=== PATIENT | female | born 1950 | race Caucasian/White ===

== ENCOUNTER → 2019-08-23 | Outpatient (CLI) | payer MEDICARE ==
--- NOTE | 2019-08-27 00:45 | HOLTMON ---
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 Baseline rhythm was sinus. Rate vaired from 45 to 138 beats per minute, with an average of 77 beats per minute. Patient had no significant pauses or ventricular ectopy. Patient had 4 singlet supraventricular beats. There were no diary events associated with dizziness. One episode of "palpitations" was associated with sinus tachycardia at a rate of 113 beats per minute. There were no diary events associated with either her highest or lowest rate. This is a normal holter monitor study- if there is concern about an electrophysiological cause of her symptoms consider an event recorder or loop recorder. Electronically Signed on 08-27-2019 0:44:44 EDT by Thong Perez
== END ==
LOC: M EKG 13:00
PROVIDERS: ATTEND Physician Assistant Medical
DX: R42 Dizziness and giddiness (principal)

== ENCOUNTER → 2023-03-08 | Outpatient (REF) | payer MEDICARE | LOC: M CFLAB 12:48 | PROVIDERS: ATTEND Physician Assistant | DX: Z12.4 Encounter for screening for malignant neoplasm of cervix (principal) ==